=== PATIENT | female | born 1970 | race Caucasian/White ===

== ENCOUNTER 2018-03-07 12:23 | Emergency (ER) | END 2018-03-07 15:51 | disposition home or self-care (01) ==

== ENCOUNTER 2018-09-26 15:11 | Emergency (ER) | payer OTHER ==
[~2018-09-26] VITALS: Ht 167.6 cm; Wt 76.9 kg
[~2018-09-26 15:11] MED LIST: ASPI1TAB2 PO; CEPH-443 PO; DIPH25CA6; IBUP-1561 PO; IBUP200C11; KETO5DRO71 RIGHT EYE; ONDA4TAB35 PO; PRED20TA; SULF1TAB31 PO
[2018-09-26 15:29] VITALS: Ht 167.6 cm; Wt 76.9 kg
[2018-09-26] MEDS ORDERED: ONDANSETRON 4 MG INJ IV STA (18:34)
[2018-09-26] MEDS ORDERED: SOD CHLORIDE 0.9% 1,000 ML IV STA (18:34)
[2018-09-26] MEDS ORDERED: morphine 4 MG/ML VIAL IV STA (18:34)
--- NOTE | 2018-09-26 19:00 | ERD ---
ER Documentation Chief Complaint Chief Complaint Complains of flank and abdominal pain since his am HPI 47-year-old female who presents to the emergency room complaining of less than 24 hours of right lower quadrant abdominal pain. She denies flank pain despite was noted at triage. The abdominal pain is noted to be 8 out of 10 and constant. Mild anorexia. Mild nausea but no vomiting, no diarrhea and constipation. No prior abdominal surgical history. No vaginal bleeding or discharge. During the patient's encounter translation services were utilized Language: Greenlandic Source: In person ROS All systems reviewed and are negative except as per history of present illness. Medications Home Meds Active Scripts Cephalexin* (Keflex*) 500 Mg Capsule, 500 MG PO BID for 7 Days, CAP Prov:JASPAL CHINCHILLA MD 09/26/18 Ibuprofen* (Motrin*) 800 Mg Tab, 800 MG PO Q6H PRN for PAIN AND OR ELEVATED TEMP, #30 TAB Prov:JASPAL CHINCHILLA MD 09/26/18 Reported Medications Ibuprofen* (Ibuprofen*) 200 Mg Capsule, 400 MG PO QID PRN for PAIN, CAP 09/26/18 Discontinued Reported Medications Prednisone (Prednisone) 20 Mg Tablet 12/25/10 Diphenhydramine Hcl (Benadryl) 25 Mg Cap 12/25/10 Ibuprofen* (Advil*) 200 Mg Capsule 12/24/10 Discontinued Scripts Ibuprofen* (Motrin*) 400 Mg Tab, 400 MG PO Q8, #30 TAB Prov:MARAL EWING MD 03/07/18 Sulfamethoxazole/Trimethoprim* (Bactrim Ds* Tablet) 1 Each Tablet, 1 TAB PO BID for 5 Days, #10 TAB Prov:AMRAL EWING MD 03/07/18 Cephalexin* (Keflex*) 500 Mg Capsule, 500 MG PO BID, #10 CAP Prov:REKHA VELAZQUEZ PA-C 03/11/16 Bypecer-Vfmtpxxhucwbd-Cmjfgfze* (Excedrin Extra Strength*) 250-250-65 Mg Tablet, 1 TAB PO Q6H PRN for PAIN, #30 TAB Prov:REKHA VELAZQUEZ PA-C 03/11/16 Ondansetron Hcl* (Zofran* ODT) 4 mg -ODT Tab.disper, 4 MG PO Q6 PRN for NAUSEA AND/OR VOMITING, #15 TAB Prov:REKHA VELAZQUEZ PA-C 03/11/16 Ketotifen Fumarate (ZADITOR) 5 Ml Drops, 5 ML RIGHT EYE QID, #1 BOTTLE Prov:INOCENTEBACILIO PA-C 08/27/15 Allergies Allergies: Coded Allergies: No Known Allergy (Unverified , 09/26/18) PMhx/Soc Medical and Surgical Hx: pt denies Medical Hx, pt denies Surgical Hx History of Surgery: No Anesthesia Reaction: No Hx Neurological Disorder: No Hx Respiratory Disorders: No Hx Cardiac Disorders: No Hx Psychiatric Problems: No Hx Miscellaneous Medical Probl: No Hx Alcohol Use: No Hx Substance Use: No Hx Tobacco Use: No Smoking Status: Never smoker FmHx Family History: No diabetes Physical Exam Vitals Vital Signs Date Temp Pulse Resp B/P (MAP) Pulse Ox O2 O2 Flow FiO2 Time Delivery Rate 09/26/18 79 18 131/82 100 Room Air 22:08 (98) 09/26/18 81 18 101/80 100 Room Air 20:45 (87) 09/26/18 97.8 78 20 141/91 97 Room Air 18:46 (108) 09/26/18 98.3 83 20 139/72 97 15:29 (94) Physical Exam General: Well developed, well nourished, no acute distress Head: Normocephalic, atraumatic. Eyes: Pupils equally reactive, EOM intact ENT: Moist mucous membranes Neck: Supple, no lymphadenopathy Respiratory: Lungs clear bilaterally, no distress Cardiovascular: RRR, no murmurs, rubs, or gallops Abdominal: Soft, focal tenderness of the right lower quadrant near McBurney's point with voluntary guarding : Deferred MSK: No edema, no unilateral swelling, 5/5 strength Neurologic: Alert and oriented, moving all extremities, normal speech, no focal weakness, no cerebellar signs Skin: No rash Psych: Normal mood Result Diagram: 09/26/18183909/26/181839 Results 24 hrs Laboratory Tests Test 09/26/18 18:40 09/26/18 19:53 White Blood Count 10.0 10^3/ul Red Blood Count 4.68 10^6/ul Hemoglobin 13.8 g/dl Hematocrit 40.9 % Mean Corpuscular Volume 87.4 fl Mean Corpuscular Hemoglobin 29.5 pg Mean Corpuscular Hemoglobin Concent 33.7 g/dl Red Cell Distribution Width 13.0 % Platelet Count 389 10^3/UL Mean Platelet Volume 9.1 fl Immature Granulocytes % 0.600 % Neutrophils % 61.9 % Lymphocytes % 32.3 % Monocytes % 4.0 % Eosinophils % 0.9 % Basophils % 0.3 % Nucleated Red Blood Cells % 0.0 /100WBC Immature Granulocytes # 0.060 10^3/ul Neutrophils # 6.2 10^3/ul Lymphocytes # 3.2 10^3/ul Monocytes # 0.4 10^3/ul Eosinophils # 0.1 10^3/ul Basophils # 0.0 10^3/ul Nucleated Red Blood Cells # 0.0 10^3/ul Urine Color YELLOW Urine Clarity SLIGHTLY CLOUDY Urine pH 6.0 Urine Specific [place] 1.019 Urine Ketones NEGATIVE mg/dL Urine Nitrite NEGATIVE mg/dL Urine Bilirubin NEGATIVE mg/dL Urine Urobilinogen NEGATIVE mg/dL Urine Leukocyte Esterase 3+ Aaron/ul Urine Microscopic RBC 34 /HPF Urine Microscopic WBC 41 /HPF Urine Squamous Epithelial Cells MODERATE /HPF Urine Bacteria FEW /HPF Urine Mucus FEW /HPF Urine Hemoglobin 1+ mg/dL Urine Glucose NEGATIVE mg/dL Urine Total Protein 1+ mg/dl Sodium Level 140 mmol/L Potassium Level 3.7 mmol/L Chloride Level 104 mmol/L Carbon Dioxide Level 29 mmol/L Anion Gap 7 Blood Urea Nitrogen 6 mg/dl Creatinine 0.57 mg/dl Est Glomerular Filtrat Rate mL/min > 60 mL/min Glucose Level 101 mg/dl Calcium Level 9.8 mg/dl Total Bilirubin 0.1 mg/dl Direct Bilirubin 0.00 mg/dl Indirect Bilirubin 0.1 mg/dl Aspartate Amino Transf (AST/SGOT) 41 IU/L Alanine Aminotransferase (ALT/SGPT) 49 IU/L Alkaline Phosphatase 101 IU/L Total Protein 8.2 g/dl Albumin 4.7 g/dl Globulin 3.50 g/dl Albumin/Globulin Ratio 1.34 Lipase 92 U/L POC Beta HCG, Qualitative NEGATIVE Current Medications Medications Dose Sig/Ben Start Time Status Last (Trade) Ordered Route PRN Stop Time Admin Dose Reason Admin Sodium 1,000 ml @ Q1H STAT 09/26/18 DC 09/26/18 Chloride 1,000 mls/hr IV 18:34 19:06 09/26/18 19:33 Morphine 4 mg ONCE STAT 09/26/18 DC Sulfate IV 18:34 (morphine) 09/26/18 18:35 Ondansetron 4 mg ONCE STAT 09/26/18 DC HCl (Zofran IV 18:34 Inj) 09/26/18 18:35 Ketorolac 30 mg ONCE STAT 09/26/18 DC 09/26/18 Tromethamine IV 21:23 22:08 (Toradol) 09/26/18 21:24 Procedures/MDM EKG, MONITORS, & DIAGNOSTIC IMAGING: CT abdomen and pelvis: IMPRESSION: 1. No CT evidence of mass, lymphadenopathy, or acute inflammatory process. Appendix is normal. 2. Hepatic steatosis. RPTAT: HHTN US pelvis: IMPRESSION: The thickness of the endometrium appears to be approximately 2 cm on transvaginal ultrasound increased compared to the previous study. Differential diagnosis includes endometrial hyperplasia, polyp and carcinoma. Please see above. RPTAT: [facility] INTERPRETATION: I reviewed the laboratory testing and it shows no evidence of leukocytosis or left shift, no anemia, no , no hepatobiliary obstruction Urinalysis with RBCs, WBCs and leuk esterase but no nitrates MEDICAL DECISION MAKING: Patient with less than 24 hours of right lower quadrant abdominal pain. Tenderness is noted near McBurney's point. Low concern for hepatobiliary obstruction. Low concern for ovarian process such as cyst or torsion. Given c oncern for acute appendicitis CT imaging appropriate of the abdomen and pelvis. ER COURSE: * IV fluids and pain medication provided * The patient initially refused morphine. The patient slight pain but CT imaging was negative. Ultrasound of the pelvis was ordered to evaluate for possible ovarian or uterine process. * Patient received Toradol and has dramatic improvement of her symptoms. Ultrasound shows evidence of endometrial hyperplasia. Outpatient follow-up for further workup and possible biopsy would be reasonable. The patient was advised to return precautions. * Urinalysis is borderline, consider possible localized irritation versus urinary tract infection. A trial of Keflex would be reasonable although the patient does not have significant urinary symptoms CONSULTATION: None DISPOSITION PLAN: The patient does not have an identifiable emergent medical condition that warrants inpatient hospitalization at this time. The patient is deemed safe for discharge with outpatient follow-up. We discussed follow up with the patient's primary care doctor within 24 to 48 hours as needed. We also discussed return to the emergency room for worsening symptoms or worsening condition. Outpatient referral: [facility] Discharge Medications: Motrin and Keflex Departure Diagnosis: Primary Impression: Right lower quadrant abdominal pain Additional Impression: Microscopic hematuria Condition: Stable JASPAL CHINCHILLA MD Sep 26, 2018 19:00
[2018-09-26] MEDS ORDERED: IBUP-1982 PO (20:20)
[2018-09-26] MEDS ORDERED: KETOROLAC 30 MG INJ IV STA (21:23)
[2018-09-26] MEDS ORDERED: IBUP800T48 PO (22:48)
[2018-09-26] MEDS ORDERED: CEPH-443 PO (22:50)
[2018-09-26 23:00] VITALS: BP 110/72; PULSE 83; RESP 20
== END 2018-09-26 23:10 | disposition home or self-care (01) ==
LOC: E/R 15:11
DX: R10.31 Right lower quadrant pain (principal); R31.29 Other microscopic hematuria; R10.2 Pelvic and perineal pain
CPT/HCPCS: 36415; 74176; 76830; 76856; 80053; 81001; 81025; 83690; 85025; 96374; J1885; J7030; Z7502; Z7610; J2270; J2405

== ENCOUNTER 2018-12-16 09:55 | Day surgery (SDC) | payer OTHER ==
[~2018-12-16] VITALS: Ht 154.9 cm; Wt 77.8 kg
[~2018-12-16 09:55] MED LIST changes: -ASPI1TAB2 PO; -DIPH25CA6; -IBUP-1561 PO; +IBUP-1982 PO; -IBUP200C11; +IBUP800T48 PO; -KETO5DRO71 RIGHT EYE; -ONDA4TAB35 PO; -PRED20TA; -SULF1TAB31 PO
[2018-12-16] MEDS ORDERED: MULTIVITAMIN (11:36)
[2018-12-16 11:48] VITALS: Ht 154.9 cm; Wt 77.8 kg
[2018-12-16] MEDS ORDERED: LIDOCAINE 4% SOLUTION 50 ML BTL ONE (11:58)
[2018-12-16 12:02] VITALS: BP 134/56; PULSE 74; RESP 18
[2018-12-16 12:30] VITALS: BP 128/70; PULSE 78; RESP 20
[2018-12-16 12:45] VITALS: BP 119/62; PULSE 78; RESP 14
[2018-12-16] MEDS ORDERED: FENTAnyl 50 MCG/ML VIAL ONE (13:13)
[2018-12-16] MEDS ORDERED: MIDAZOLAM 1 MG/ML 2 ML INJ ONE ×2 (13:14)
== END 2018-12-16 15:02 | disposition home or self-care (01) ==
LOC: GIL 09:55
PROVIDERS: ATTEND Internal Medicine Gastroenterology
DX: K29.30 Chronic superficial gastritis without bleeding (principal); K21.0 Gastro-esophageal reflux disease with esophagitis
CPT/HCPCS: 43239; 84703; 88305; 88312; 88313; J2250; J3010; Z7610